=== PATIENT | male | born 1960 | race African-American/Black ===

== ENCOUNTER 2018-02-26 09:15 | Observation (INO) ==
[2018-02-26] MEDS ORDERED: SODIUM CHLORIDE 0.9% 1,000 ML IV STA (09:26)
[2018-02-26 10:11] LABS: Basophils % 0.3 % (0.0-0.8); Eosinophils % 0.9 % (0.00-10.9); Hematocrit 41.3 VOL% (42.0-52.0); Hemoglobin 14.6 GM/DL (14.0-18.0); Lymphocytes # 1.4 10*3/uL (1.4-4.0); Lymphocytes % 44.1 % (21.2-54.2); Mean Corpuscular HGB Conc 35.4 GM/DL (32-36); Mean Corpuscular Hemoglobin 30 PG (27-34); Mean Corpuscular Volume 85.7 FL (87-102); Mean Platelet Volume 11.5 FL (9.6-12.0); Monocytes # 0.5 10*3/uL (0.11-0.8); Monocytes % 15.8 % (1.7-12.7); Neutrophils # 1.3 10*3/uL (1.4-7.4); Neutrophils % 38.9 % (38.7-73.9); Platelet Count 154 T/CUMM (130-400); Red Blood Count 4.82 MC/CUMM (3.8-5.5); Red Cell Distribution Width 12.6 % (9.3-17.3); White Blood Count 3.2 T/CUMM (4-12)
[2018-02-26 10:19] LABS: INR 1.1; PT Patient Result 11.3 SECS; Partial Thromboplastin Time 30.3 SECS (0-40)
[2018-02-26 10:26] LABS: Apearance,Urine CLEAR (Clear); Bilirubin,Urine Negative (Negative); Blood, Urine Negative (Negative); Glucose,Urine (UA) Negative (Negative); Ketones,Urine Negative (Negative); Mucus,Urine Occasional /LPF (Occasional); Nitrite,Urine Negative (Negative); Protein,Urine Negative; RBC,Urine <1 /HPF (0-4); Squamous Epithelial Cell,Urine Occasional /HPF (0-10); Urine Color Straw (Yellow); Urine Specific Gravity 1.006 (1.001-1.035); Urine Urobilinogen < 2.0 EU/DL (0.2-1.0); WBC,Urine <1 /HPF (0-6)
[2018-02-26 10:40] LABS: Alanine Aminotransferase 15 U/L (16-61); Albumin 3.7 G/DL (3.4-5.0); Alkaline Phosphatase 87 U/L (45-117); Aspartate Amino Transferase 13 U/L (0-37); Bilirubin,Total < 0.39 MG/DL (0.2-1.0); Blood Urea Nitrogen 11 MG/DL (7-18); Calcium 8.6 MG/DL (8.5-10.1); Glucose 83 MG/DL (74-106); Osmolality,Calculated 274.5 MOS/KG (273-304); Sodium 139 MMOL/L (136-145); Total Protein 7.1 G/DL (6.4-8.3)
[2018-02-26 10:45] LABS: Atypical Lymphocytes Few; Eosinophils 1 % (0-10); Hypochromasia Slight; Lymphocytes 44 % (20-55); Ovalocytes Slight; Platelet Estimate Normal; Segmented Neutrophils 43 % (50-85); Total Cells Counted 100
[2018-02-26 11:00] LABS: Barbiturates Screen,Urine Negative (Negative); Benzodiazepines Screen,Urine Negative (Negative); Cannabinoid Screen,Urine Negative (Negative); Opiate Screen,Urine Negative (Negative); Phencyclidine Screen,Urine Negative (Negative)
[2018-02-26] MEDS ORDERED: LABETALOL 20 MG/4 ML SYRINGE IV PRN (14:31)
[2018-02-26] MEDS: ASPIRIN 325 MG TABLET PO SCH (15:59)
[2018-02-27 03:21] LABS: Basophils % 0.3 % (0.0-0.8); Eosinophils # 0.1 10*3/uL (0.0-0.87); Hematocrit 39.5 VOL% (42.0-52.0); Hemoglobin 14.1 GM/DL (14.0-18.0); Lymphocytes # 1.9 10*3/uL (1.4-4.0); Lymphocytes % 55.4 % (21.2-54.2); Mean Corpuscular HGB Conc 35.7 GM/DL (32-36); Mean Corpuscular Hemoglobin 30 PG (27-34); Mean Corpuscular Volume 84.9 FL (87-102); Monocytes # 0.5 10*3/uL (0.11-0.8); Monocytes % 14.3 % (1.7-12.7); Platelet Count 160 T/CUMM (130-400); Red Blood Count 4.65 MC/CUMM (3.8-5.5); Red Cell Distribution Width 12.5 % (9.3-17.3); White Blood Count 3.5 T/CUMM (4-12)
[2018-02-27 03:48] LABS: Calcium 8.6 MG/DL (8.5-10.1); Osmolality,Calculated 279.3 MOS/KG (273-304); Potassium 3.9 MMOL/L (3.5-5.1)
[2018-02-27 03:50] LABS: Risk Ratio 3.4
[2018-02-27 03:55] LABS: Eosinophils 2 % (0-10); Lymphocytes 49 % (20-55); Platelet Estimate Adequate; Reactive Lymphocytes Few; Segmented Neutrophils 32 % (50-85); Total Cells Counted 100
[2018-02-27] MEDS ORDERED: LISINOPRIL 10 MG TABLET PO SCH (09:00)
[2018-02-27] MEDS: ASPIRIN 325 MG TABLET PO SCH (09:44)
[2018-02-27 10:55] VITALS: BP 128/76
== END 2018-02-27 15:00 | disposition home or self-care (01) ==
LOC: N.ED 09:15 → N.EDINP 09:15 → N.3E 17:52
PROVIDERS: ADMIT Internal Medicine Infectious Disease; ATTEND Internal Medicine Infectious Disease

== ENCOUNTER 2021-07-26 18:12 | Observation (INO) ==
[2021-07-26] MEDS ORDERED: ALUM/MAG/SIMETH/LIDO VISC 1:1 30 ML BOTTLE PO STA (18:57)
[2021-07-26] MEDS ORDERED: MORPHINE 2 MG/1 ML SYRINGE IV STA (18:57)
[2021-07-26] MEDS ORDERED: SODIUM CHLORIDE 0.9% 500 ML IV STA (18:57)
[2021-07-26] MEDS ORDERED: ASPIRIN 325 MG TABLET PO STA (18:57)
[2021-07-26] MEDS ORDERED: ONDANSETRON 4 MG/2 ML VIAL IV STA (18:57)
[2021-07-26 18:59] LABS: Basophils % 0.2 % (0.0-0.8); Eosinophils % 0.1 % (0.00-10.9); Hemoglobin 13.5 GM/DL (14.0-18.0); Immature Granulocytes % 0.6 %; Immature Granulocytes Absolute 0.07 #; Lymphocytes % 16.4 % (21.2-54.2); Mean Corpuscular HGB Conc 33.8 GM/DL (32-36); Mean Corpuscular Volume 86.4 FL (87-102); Mean Platelet Volume 11.5 FL (9.6-12.0); Monocytes % 10.7 % (1.7-12.7); Platelet Count 176 T/CUMM (130-400); Red Blood Count 4.63 MC/CUMM (3.8-5.5); Red Cell Distribution Width 13.3 % (9.3-17.3); White Blood Count 12.1 T/CUMM (4-12)
[2021-07-26 19:19] LABS: Albumin 3.6 G/DL (3.4-5.0); Bilirubin,Total 0.6 MG/DL (0.20-1.00); Calcium 9.4 MG/DL (8.5-10.1); Osmolality,Calculated 283.7 MOS/KG (273-304); Potassium 3.9 MMOL/L (3.5-5.1); Total Protein 7.2 G/DL (6.4-8.2)
[2021-07-26 19:31] LABS: Band Neutrophils 4 % (0-10); Lymphocytes 19 % (20-55); Segmented Neutrophils 70 % (50-85); Total Cells Counted 100
[2021-07-26 19:33] LABS: Spherocytes Slight
[2021-07-26 19:34] LABS: Platelet Estimate Normal
[2021-07-26 19:56] LABS: INR 1.1; PT Patient Result 12.1 SECS (10.5-12.0)
[2021-07-26 20:40] LABS: Bacteria,Urine Many /HPF (Few); Bilirubin,Urine Negative (Negative); Blood, Urine Small mg/dL (Negative); Glucose,Urine (UA) Negative (Negative); Hyaline Casts,Urine 10 /LPF (0-3); Ketones,Urine 5 mg/dL (Negative); Mucus,Urine Occasional /LPF (Occasional); Nitrite,Urine Positive (Negative); Protein,Urine 30 MG/DL; RBC,Urine 3 /HPF (0-4); Urine Appearance Slightly Hazy (Clear); Urine Color Amber (Yellow); Urine Specific Gravity 1.023 (1.001-1.035)
[2021-07-26 20:46] LABS: Barbiturates Screen,Urine Negative (Negative); Benzodiazepines Screen,Urine Negative (Negative); Cannabinoid Screen,Urine Negative (Negative); Opiate Screen,Urine Negative (Negative); Phencyclidine Screen,Urine Negative (Negative)
[2021-07-26] MEDS ORDERED: ENOXAPARIN 100 MG/ML SYRINGE SUBCUT ONE (22:42)
[2021-07-26] MEDS ORDERED: cefTRIAXone 1,000 MG in SODIUM CHLORIDE 0.9% 100 ML IV STA (22:43)
[2021-07-26] MEDS ORDERED: GLUCAGON 1 MG VIAL IM PRN (23:22)
[2021-07-26] MEDS ORDERED: DEXTROSE 50% 25 GM/50 ML VIAL IV PRN (23:22)
[2021-07-26] MEDS ORDERED: MAGNESIUM SULF RIDER 4 GM/100 ML PREMIX IV PRN (23:23)
[2021-07-26] MEDS ORDERED: ACETAMINOPHEN 325 MG TABLET PO PRN (23:23)
[2021-07-26] MEDS ORDERED: ONDANSETRON 4 MG/2 ML VIAL IV PRN (23:23)
[2021-07-26] MEDS ORDERED: POTASSIUM CHLORIDE RIDER 10 MEQ/100 ML PREMIX IV PRN (23:23)
[2021-07-26] MEDS ORDERED: MAGNESIUM SULF RIDER 2 GM/50 ML PREMIX IV PRN (23:23)
[2021-07-26] MEDS ORDERED: POTASSIUM CHLORIDE 20 MEQ TABLET PO PRN (23:23)
[2021-07-26] MEDS ORDERED: SIMETHICONE CHEW 125 MG TABLET PO PRN (23:23)
[2021-07-26] MEDS ORDERED: hydrALAZINE 20 MG/1 ML VIAL IV PRN (23:23)
[2021-07-27] MEDS: SODIUM CHLORIDE 0.9% 1,000 ML IV SCH ×2 (02:01→10:02)
[2021-07-27 03:52] LABS: Basophils % 0.2 % (0.0-0.8); Eosinophils # 0.1 10*3/uL (0.0-0.87); Eosinophils % 0.7 % (0.00-10.9); Hematocrit 37.3 VOL% (42.0-52.0); Hemoglobin 12.2 GM/DL (14.0-18.0); Immature Granulocytes % 0.3 %; Immature Granulocytes Absolute 0.04 #; Lymphocytes # 1.9 10*3/uL (1.4-4.0); Lymphocytes % 16.1 % (21.2-54.2); Mean Corpuscular HGB Conc 32.7 GM/DL (32-36); Mean Corpuscular Volume 87.6 FL (87-102); Neutrophils % 70.7 % (38.7-73.9); Platelet Count 158 T/CUMM (130-400); Red Blood Count 4.26 MC/CUMM (3.8-5.5); Red Cell Distribution Width 13.4 % (9.3-17.3)
[2021-07-27 04:02] LABS: INR 1.1; PT Patient Result 12.4 SECS (10.5-12.0)
[2021-07-27 04:27] LABS: Lymphocytes 15 % (20-55); Platelet Estimate Adequate; Segmented Neutrophils 70 % (50-85); Total Cells Counted 100
[2021-07-27 04:28] LABS: Hypochromasia Slight; Microcytosis Slight
[2021-07-27 04:31] LABS: Calcium 8.6 MG/DL (8.5-10.1); Osmolality,Calculated 281.5 MOS/KG (273-304); Potassium 3.8 MMOL/L (3.5-5.1); Risk Ratio 3.38; Thyroid Stimulating Hormone 0.589 uIU/ml (0.358-3.74); VLDL Cholesterol 16.4 MG/DL
[2021-07-27] MEDS ORDERED: PANTOPRAZOLE 40 MG TABLET PO SCH (09:00)
[2021-07-27] MEDS ORDERED: DOCUSATE SODIUM 100 MG CAPSULE PO SCH (09:00)
[2021-07-27] MEDS ORDERED: ENOXAPARIN 60 MG/0.6 ML SYRINGE SUBCUT SCH (09:00)
[2021-07-27 15:42] VITALS: BP 144/84
[2021-07-27] MEDS ORDERED: GABAPENTIN 100 MG CAPSULE PO SCH (21:00)
[2021-07-27] MEDS ORDERED: cefTRIAXone 1,000 MG in SODIUM CHLORIDE 0.9% 100 ML IV SCH (21:00)
[2021-07-27] MEDS ORDERED: BENZTROPINE 1 MG TABLET PO SCH (21:00)
[2021-07-27] MEDS ORDERED: HALOPERIDOL 5 MG TABLET PO SCH (21:00)
[2021-07-28] MEDS ORDERED: LISINOPRIL/HCTZ 10-12.5 MG TABLET PO SCH (09:00)
[2021-07-28] MEDS ORDERED: MULTIVITAMIN (CENTRUM) TABLET PO SCH (09:00)
== END 2021-07-27 16:20 | disposition home or self-care (01) ==
LOC: N.EDINP 18:12 → N.ED 18:12 → SUATTDRO 23:22 → N.EDINP 07-27 01:23 → N.TELEN 07-27 02:35
PROVIDERS: ADMIT Internal Medicine; ATTEND Internal Medicine